=== PATIENT | female | born 2000 | race Hispanic/Latino ===

== ENCOUNTER 2020-01-23 11:28 | Emergency (ER) | payer OTHER, MEDICAID, SELFPAY ==
[2020-01-23 11:39] VITALS: BP 144/73; PULSE 88; RESP 16; TEMP 37; O2SAT 98; BMI 23.8
--- NOTE | 2020-01-23 11:46 | ED.FEMALEGU ---
HPI - Female Genitourinary <ANDREW Stanford - Last Filed: 01/23/20 15:01> General Chief complaint: Urogenital-Female Stated complaint: bladder pain Time Seen by Provider: 01/23/20 11:30 Source: patient Mode of arrival: Wheelchair Limitations: no limitations History of Present Illness HPI Narrative: The patient is a 19-year-old female nonsmoker who presents with her fiance with chief complaint of bladder pain that started at 10:30 a.m.. She states that her pain is focused in the right lower quadrant right side of her abdomen. It started when she woke up in urinated, then she had severe bladder spasm she could not get off the toilet. She tried to take a warm shower to see if that would help and it did not help. She complains of nausea, no vomiting. No fevers. She states she feels like she needs to keep urinating even when she is done. She denies any dysuria but complains of bladder spasm after urination. She denies any flank pain. She states she does have a history of endometriosis, but never has had the diagnosis confirmed by surgery. She denies any history of abdominal surgeries. She denies any vaginal bleeding vaginal discharge or vaginal itching. She denies any concern of sexually transmitted infections. She has never felt this way before. The patient states she has never been sexually active. She recently saw an OBGYN within the past week to talk about IUD insertion. The patient was tested for gonorrhea and chlamydia pre IUD insertion per protocol. She states she is negative. Related Data Previous Rx's Medication Instructions Recorded ketorolac 10 mg PO TID PRN #14 tab 01/23/20 nitrofurantoin macrocrystal 100 mg PO BID #14 cap 01/23/20 ondansetron 4 mg PO Q6H PRN #20 tab 01/23/20 Allergies Allergy/AdvReac Type Severity Reaction Status Date / Time No Known Drug Allergies Allergy Verified 01/23/20 11:38 Review of Systems <ANDREW Stanford - Last Filed: 01/23/20 15:01> Review of Systems Narrative: GENERAL: Denies chills, fatigue, malaise, fever, sweats. HEENT: Denies sinus pain, ear pain, sore throat, difficulty swallowing, dizziness. RESPIRATORY: Denies dyspnea, cough, wheezing, hemoptysis, sputum. CARDIOVASCULAR: Denies chest pain, palpitations, orthopnea, edema, GASTROINTESTINAL: See HPI : See HPI MUSCULOSKELETAL: denies weakness, joint pain, or bony pain SKIN: Denies rash, skin lesions, or other NEUROLOGIC: Denies weakness, headache, numbness, change in speech, confusion, seizures, incoordination. PSYCHIATRIC: No concerning psychosocial issues. 12 point review of systems is negative except for those stated above Patient History <ANDREW Stanford - Last Filed: 01/23/20 15:01> alcohol intake frequency: 0-2 drinks per day Substance Use Type: does not use Exam <ANDREW Stanford - Last Filed: 01/23/20 15:01> Narrative Exam Narrative: GENERAL: This is a well-nourished, well-developed patient, appears uncomfortable HEAD: Atraumatic. Normocephalic. No temporal or scalp tenderness. EYES: Pupils equal round and reactive. Extraocular motions intact. No scleral icterus. No injection or drainage. ENT: Nose without bleeding, purulent drainage or septal hematoma. Throat without erythema, tonsillar hypertrophy or exudate. Uvula midline. Airway patent. NECK: Trachea midline. No JVD or lymphadenopathy. Supple, nontender, no meningeal signs. CARDIOVASCULAR: Regular rate and rhythm RESPIRATORY: Clear to auscultation. Breath sounds equal bilaterally. No wheezes, rales, or rhonchi. No cough. No increased respiratory effort. No accessory muscle use. GASTROINTESTINAL: Abdomen soft, diffusely tender, nondistended. No hepato-splenomegaly, or palpable masses. No guarding. Negative Bashir sign. Right lower quadrant tenderness to palpation with no guarding. Negative peritoneal signs. EXTREMITIES: No clubbing, cyanosis, or edema. No joint tenderness, effusion, or edema noted. BACK: Nontender without deformity or crepitance. No flank tenderness. NEURO: AOx3. SKIN: No rash or erythema on visible skin Initial Vital Signs Initial Vital Signs: Vital Signs Temperature 98.6 F 01/23/20 11:39 Pulse Rate 88 01/23/20 11:39 Respiratory Rate 16 01/23/20 11:39 Blood Pressure 144/73 H 01/23/20 11:39 Pulse Oximetry 98 01/23/20 11:39 <John Boston DO - Last Filed: 01/23/20 15:02> Initial Vital Signs Initial Vital Signs: Vital Signs Temperature 98.6 F 01/23/20 11:39 Pulse Rate 88 01/23/20 11:39 Respiratory Rate 16 01/23/20 11:39 Blood Pressure 144/73 H 01/23/20 11:39 Pulse Oximetry 98 01/23/20 11:39 Course <ANDREW Stanford - Last Filed: 01/23/20 15:01> Orders Ordered: ED Orders 01/23/20 11:45 Amylase Stat Complete Blood Count AUTO DIFF Stat Comprehensive Metabolic Panel Stat Lipase Stat Test Serum,Qual Stat 01/23/20 12:25 Urinalysis and Microscopic Stat Urine Culture Stat 01/23/20 12:40 US pelvic complete Stat Discontinued Medications Sodium Chloride (Normal Saline 0.9%) 1,000 mls @ 1,000 mls/hr IV BOLUS ONE Stop: 01/23/20 12:41 Last Infusion: 01/23/20 14:17 Dose: 0 mls/hr Documented by: Admin: 01/23/20 11:53 Dose: 1,000 mls/hr Documented by: YAMILKA Ketorolac Tromethamine (Toradol) 30 mg IV NOW ONE Stop: 01/23/20 12:41 Last Admin: 01/23/20 12:52 Dose: 30 mg Documented by: IFEOMA Ondansetron HCl (Zofran) 4 mg IV NOW ONE Stop: 01/23/20 11:43 Last Admin: 01/23/20 11:53 Dose: 4 mg Documented by: YAMILKA Vital Signs Vital signs: Vital Signs - 8 hr 01/23/20 11:39 01/23/20 13:40 01/23/20 14:56 Temperature 98.6 F Pulse Rate 88 71 68 Respiratory Rate 16 16 Blood Pressure 144/73 H 105/61 Blood Pressure [Right Arm] 107/62 Pulse Oximetry 98 100 100 <John Botson DO - Last Filed: 01/23/20 15:02> Orders Ordered: ED Orders 01/23/20 11:45 Amylase Stat Complete Blood Count AUTO DIFF Stat Comprehensive Metabolic Panel Stat Lipase Stat Test Serum,Qual Stat 01/23/20 12:25 Urinalysis and Microscopic Stat Urine Culture Stat 01/23/20 12:40 US pelvic complete Stat Discontinued Medications Sodium Chloride (Normal Saline 0.9%) 1,000 mls @ 1,000 mls/hr IV BOLUS ONE Stop: 01/23/20 12:41 Last Infusion: 01/23/20 14:17 Dose: 0 mls/hr Documented by: Admin: 01/23/20 11:53 Dose: 1,000 mls/hr Documented by: YAMILKA Ketorolac Tromethamine (Toradol) 30 mg IV NOW ONE Stop: 01/23/20 12:41 Last Admin: 01/23/20 12:52 Dose: 30 mg Documented by: IFEOMA Ondansetron HCl (Zofran) 4 mg IV NOW ONE Stop: 01/23/20 11:43 Last Admin: 01/23/20 11:53 Dose: 4 mg Documented by: YAMILKA Vital Signs Vital signs: Vital Signs - 8 hr 01/23/20 11:39 01/23/20 13:40 01/23/20 14:56 Temperature 98.6 F Pulse Rate 88 71 68 Respiratory Rate 16 16 Blood Pressure 144/73 H 105/61 Blood Pressure [Right Arm] 107/62 Pulse Oximetry 98 100 100 [facility] - Female Genitourinary <ZACH Stanford - Last Filed: 01/23/20 15:01> Differential Diagnosis Differential diagnosis: Likely urinary tract infection, ovarian cyst and ruptured ovarian cyst Lab Data Result diagrams: 01/23/20 11:45 01/23/20 11:45 Labs: Lab Results 01/23/20 01/23/20 01/23/20 Range/Units 11:45 11:45 11:45 WBC 5.8 (4.5-11.0) X10^3/uL RBC 4.42 (4.0-5.2) X10^6/uL Hgb 14.4 (12.0-16.0) g/dL Hct 39.7 (36-46) % MCV 89.8 (80-100) fL MCH 32.5 (26-34) PG MCHC 36.2 H (30-36) % RDW 12.9 (11.6-14.8) % Plt Count 187 (150-400) X10^3/uL Neut % (Auto) 55.5 (50-75) % Lymph % (Auto) 34.3 (25-40) % Tate % (Auto) 8.9 (3-14) % Eos % (Auto) 1.1 L (2-4) % Baso % (Auto) 0.2 (0-2) % Neut # (Auto) 3200 (8539-5111) /uL Lymph # (Auto) 2000 (8901-2371) /uL Tate # (Auto) 500 (0-900) /uL Eos # (Auto) 100 (0-450) /uL Baso # (Auto) 0 (0-100) /uL Sodium 137 (137-145) mmol/L Potassium 4.2 (3.4-5.1) mmol/L Chloride 107 (98-107) mmol/L Carbon Dioxide 23 (22-32) mmol/L BUN 12 (7-17) mg/dL Creatinine 0.76 (0.52-1.04) mg/dL Estimated GFR > 60.0 (>60) mL/min BUN/Creatinine Ratio 15.8 (6-22) Glucose 84 (70-100) mg/dL Calcium 9.6 (8.4-10.2) mg/dL Total Bilirubin 0.6 (0.2-1.3) mg/dL AST 24 (14-36) IU/L ALT 14 (<35) IU/L Alkaline Phosphatase 47 (38-126) U/L Total Protein 7.1 (6.3-8.2) g/dL Albumin 4.2 (3.5-5.0) g/dL Globulin 2.9 (1.7-4.1) g/dL Albumin/Globulin Ratio 1.4 (1.0-2.8) Amylase 106 (30-110) U/L Lipase 89 (23-300) U/L Serum , Qual Negative (Negative) Urine Color Urine Appearance Urine pH (4.5-8.0) Ur Specific [place] (1.000-1.035) Urine Protein (Negative) Urine Glucose (UA) (Negative) g/dL Urine Ketones (NEGATIVE) Urine Occult Blood (Negative) Urine Nitrate (Negative) Urine Bilirubin (NEGATIVE) Urine Urobilinogen (0.2) E.U./dL Ur Leukocyte Esterase (NEGATIVE) Urine RBC (0-5/HPF) Urine WBC (0-5/HPF) Ur Squamous Epith Cells (0-5/HPF) Urine Bacteria (None) Ur Culture Indicated? 01/23/20 Range/Units 12:25 WBC (4.5-11.0) X10^3/uL RBC (4.0-5.2) X10^6/uL Hgb (12.0-16.0) g/dL Hct (36-46) % MCV (80-100) fL MCH (26-34) PG MCHC (30-36) % RDW (11.6-14.8) % Plt Count (150-400) X10^3/uL Neut % (Auto) (50-75) % Lymph % (Auto) (25-40) % Tate % (Auto) (3-14) % Eos % (Auto) (2-4) % Baso % (Auto) (0-2) % Neut # (Auto) (4468-2383) /uL Lymph # (Auto) (6340-6633) /uL Tate # (Auto) (0-900) /uL Eos # (Auto) (0-450) /uL Baso # (Auto) (0-100) /uL Sodium (137-145) mmol/L Potassium (3.4-5.1) mmol/L Chloride (98-107) mmol/L Carbon Dioxide (22-32) mmol/L BUN (7-17) mg/dL Creatinine (0.52-1.04) mg/dL Estimated GFR (>60) mL/min BUN/Creatinine Ratio (6-22) Glucose (70-100) mg/dL Calcium (8.4-10.2) mg/dL Total Bilirubin (0.2-1.3) mg/dL AST (14-36) IU/L ALT (<35) IU/L Alkaline Phosphatase (38-126) U/L Total Protein (6.3-8.2) g/dL Albumin (3.5-5.0) g/dL Globulin (1.7-4.1) g/dL Albumin/Globulin Ratio (1.0-2.8) Amylase (30-110) U/L Lipase (23-300) U/L Serum , Qual (Negative) Urine Color Yellow Urine Appearance Clear Urine pH 6.0 (4.5-8.0) Ur Specific [place] <=1.005 (1.000-1.035) Urine Protein Negative (Negative) Urine Glucose (UA) Negative (Negative) g/dL Urine Ketones Negative (NEGATIVE) Urine Occult Blood Trace-intact (Negative) Urine Nitrate Negative (Negative) Urine Bilirubin Negative (NEGATIVE) Urine Urobilinogen 0.2 (0.2) E.U./dL Ur Leukocyte Esterase Negative (NEGATIVE) Urine RBC 0-1/hpf (0-5/HPF) Urine WBC 0-1/hpf (0-5/HPF) Ur Squamous Epith Cells 1-5 /hpf (0-5/HPF) Urine Bacteria Moderate (10-30) H (None) Ur Culture Indicated? Specimen cultured Urine Dip Bedside Urine Glucose Negative Bedside Urine Bilirubin - Negative Bedside Urine Ketone - Negative Urine Specific [place] 1.010 Bedside Urine Occult Blood - Negative Bedside Urine pH 6.0 Bedside Urine Protein - Negative Bedside Urine Urobilinogen - Negative Bedside Urine Nitrite - Negative Bedside Urine Leukocytes - Negative Esterase Imaging Data US - BIKE MECHANIC: Radiologist's Impression: [address] [place] [id number] Ultrasound Report Signed Patient: Shana Bunch MMR#: [id number] : 2000Acct:[id number] Age/Sex: FDate of Service: 01/23/20 Loc: ED Accession Number: [id number] Procedure: US pelvic complete Ordering Provider: Vani Calderón INTERFACE DESIGNER-BC PROCEDURE: US PELVIC COMPLETE INDICATIONS: PAIN TECHNIQUE: Real-time scanning was performed of the pelvic organs, with image documentation. Additional endovaginal scanning was necessary due to incomplete visualization of the adnexal and endometrial structures by transabdominal scanning. COMPARISON: None. FINDINGS: Transabdominal scanning: Limited scanning through the kidneys shows no hydronephrosis. There is a proximally 60 cc of free fluid deep within the posterior cul-de-sac, containing low-level internal echoes, likely reflecting rupture of a hemorrhagic ovarian cyst Endovaginal scanning: Uterus: Uterus is normal in size at 4.4 x 5.3 x 7.1 cm, retroverted. The endometrium measures 4.9 mm in combined thickness. Ovaries: The right ovary measures 1.6 x 1.7 x 3.0 cm and the left measures 1.5 x 1.8 x 4.2 cm with a involuting cyst measuring 1.1 x 0.9 x 3.3 cm. IMPRESSION: Involuting presumably ruptured ovarian cyst left ovary, with the finding of nearby free fluid deep within the cul-de-sac containing low level internal echoes. The appearance likely is secondary to rupture of an ovarian cyst that is hemorrhagic. Please correlate for presence or absence of (the low-level echoes within the free fluid could indicate hemorrhage from ectopic ). Close clinical followup is recommended given this finding. Dictated by: Cuauhtemoc Akins M.D. on 01/23/2020 at 13:20 Approved by: Cuauhtemoc Akins M.D. on 01/23/2020 at 13:23 MDM Narrative Medical decision making narrative: The patient is a 19-year-old female who presents with a chief complaint of bladder spasms and lower abdominal pain. Urinalysis is concerning for infection with moderate bacteria, will treat for UTI with Macrobid at this point time. Ultrasound is suspicious for left ovarian cyst that is hemorrhagic at this point. Radiologist suggests possibility of ectopic and a positive patient, however this patient has a negative test by serum and has never been sexually active. She feels much improved after the above-stated therapies, so I sent prescriptions of Macrobid, Toradol, Zofran. Encouraged follow-up with primary care provider as well as the OBGYN that she saw within the past week. Patient has no leukocytosis on her labs, which is very reassuring. She is afebrile at as well. Patient has no questions or concerns upon discharge and states understanding of return precautions of any acute concerns, significant pain, significant back pain inability keep down fluids as well as follow-up care. She has been hemodynamically stable and afebrile throughout her stay in the emergency department. <John Boston, DO - Last Filed: 01/23/20 15:02> Lab Data Labs: Lab Results 01/23/20 01/23/20 01/23/20 Range/Units 11:45 11:45 11:45 WBC 5.8 (4.5-11.0) X10^3/uL RBC 4.42 (4.0-5.2) X10^6/uL Hgb 14.4 (12.0-16.0) g/dL Hct 39.7 (36-46) % MCV 89.8 (80-100) fL MCH 32.5 (26-34) PG MCHC 36.2 H (30-36) % RDW 12.9 (11.6-14.8) % Plt Count 187 (150-400) X10^3/uL Neut % (Auto) 55.5 (50-75) % Lymph % (Auto) 34.3 (25-40) % Tate % (Auto) 8.9 (3-14) % Eos % (Auto) 1.1 L (2-4) % Baso % (Auto) 0.2 (0-2) % Neut # (Auto) 3200 (9079-1834) /uL Lymph # (Auto) 2000 (4231-1260) /uL Tate # (Auto) 500 (0-900) /uL Eos # (Auto) 100 (0-450) /uL Baso # (Auto) 0 (0-100) /uL Sodium 137 (137-145) mmol/L Potassium 4.2 (3.4-5.1) mmol/L Chloride 107 (98-107) mmol/L Carbon Dioxide 23 (22-32) mmol/L BUN 12 (7-17) mg/dL Creatinine 0.76 (0.52-1.04) mg/dL Estimated GFR > 60.0 (>60) mL/min BUN/Creatinine Ratio 15.8 (6-22) Glucose 84 (70-100) mg/dL Calcium 9.6 (8.4-10.2) mg/dL Total Bilirubin 0.6 (0.2-1.3) mg/dL AST 24 (14-36) IU/L ALT 14 (<35) IU/L Alkaline Phosphatase 47 (38-126) U/L Total Protein 7.1 (6.3-8.2) g/dL Albumin 4.2 (3.5-5.0) g/dL Globulin 2.9 (1.7-4.1) g/dL Albumin/Globulin Ratio 1.4 (1.0-2.8) Amylase 106 (30-110) U/L Lipase 89 (23-300) U/L Serum , Qual Negative (Negative) Urine Color Urine Appearance Urine pH (4.5-8.0) Ur Specific [place] (1.000-1.035) Urine Protein (Negative) Urine Glucose (UA) (Negative) g/dL Urine Ketones (NEGATIVE) Urine Occult Blood (Negative) Urine Nitrate (Negative) Urine Bilirubin (NEGATIVE) Urine Urobilinogen (0.2) E.U./dL Ur Leukocyte Esterase (NEGATIVE) Urine RBC (0-5/HPF) Urine WBC (0-5/HPF) Ur Squamous Epith Cells (0-5/HPF) Urine Bacteria (None) Ur Culture Indicated? 01/23/20 Range/Units 12:25 WBC (4.5-11.0) X10^3/uL RBC (4.0-5.2) X10^6/uL Hgb (12.0-16.0) g/dL Hct (36-46) % MCV (80-100) fL MCH (26-34) PG MCHC (30-36) % RDW (11.6-14.8) % Plt Count (150-400) X10^3/uL Neut % (Auto) (50-75) % Lymph % (Auto) (25-40) % Tate % (Auto) (3-14) % Eos % (Auto) (2-4) % Baso % (Auto) (0-2) % Neut # (Auto) (7062-2708) /uL Lymph # (Auto) (9057-0852) /uL Tate # (Auto) (0-900) /uL Eos # (Auto) (0-450) /uL Baso # (Auto) (0-100) /uL Sodium (137-145) mmol/L Potassium (3.4-5.1) mmol/L Chloride (98-107) mmol/L Carbon Dioxide (22-32) mmol/L BUN (7-17) mg/dL Creatinine (0.52-1.04) mg/dL Estimated GFR (>60) mL/min BUN/Creatinine Ratio (6-22) Glucose (70-100) mg/dL Calcium (8.4-10.2) mg/dL Total Bilirubin (0.2-1.3) mg/dL AST (14-36) IU/L ALT (<35) IU/L Alkaline Phosphatase (38-126) U/L Total Protein (6.3-8.2) g/dL Albumin (3.5-5.0) g/dL Globulin (1.7-4.1) g/dL Albumin/Globulin Ratio (1.0-2.8) Amylase (30-110) U/L Lipase (23-300) U/L Serum , Qual (Negative) Urine Color Yellow Urine Appearance Clear Urine pH 6.0 (4.5-8.0) Ur Specific [place] <=1.005 (1.000-1.035) Urine Protein Negative (Negative) Urine Glucose (UA) Negative (Negative) g/dL Urine Ketones Negative (NEGATIVE) Urine Occult Blood Trace-intact (Negative) Urine Nitrate Negative (Negative) Urine Bilirubin Negative (NEGATIVE) Urine Urobilinogen 0.2 (0.2) E.U./dL Ur Leukocyte Esterase Negative (NEGATIVE) Urine RBC 0-1/hpf (0-5/HPF) Urine WBC 0-1/hpf (0-5/HPF) Ur Squamous Epith Cells 1-5 /hpf (0-5/HPF) Urine Bacteria Moderate (10-30) H (None) Ur Culture Indicated? Specimen cultured Urine Dip Bedside Urine Glucose Negative Bedside Urine Bilirubin - Negative Bedside Urine Ketone - Negative Urine Specific [place] 1.010 Bedside Urine Occult Blood - Negative Bedside Urine pH 6.0 Bedside Urine Protein - Negative Bedside Urine Urobilinogen - Negative Bedside Urine Nitrite - Negative Bedside Urine Leukocytes - Negative Esterase Discharge Plan Departure Patient Disposition: Home Clinical Impression: Urinary tract infection Qualifiers: Urinary tract infection type: site unspecified Hematuria presence: without hematuria Qualified Code(s): N39.0 - Urinary tract infection, site not specified Ovarian cyst Qualifiers: Laterality: left Qualified Code(s): N83.202 - Unspecified ovarian cyst, left side Discharge Date/Time: 01/23/20 14:57 Instructions: DI for Urinary Tract Infection (UTI), DI for Ovarian Cyst, DI for Abdominal Pain-Adult Activity Restrictions/Additional Instructions: Thank you for trusting us with your care today As I discussed, we found evidence of a urinary tract infection as well as an ovarian cyst I sent 3 prescriptions to [facility] in [place]. This includes an antibiotic, pain medicine and nausea medicine I have given you a prescription of Toradol. This is an NSAID. Do not combine it with other NSAIDs such as Aleve or ibuprofen. I suggest taking it with some food, as it can irritate your stomach. Please take a probiotic or yogurt with the antibiotic. I also suggest [id number] azo to help numb the urinary tract There is a urine culture pending. If we need to change your antibiotics in a few days we will call you. Please follow-up with primary care provider as well as fulfillment specialist Please come back to the emergency department for any acute concerns such as inability keep down fluids, severe pain etcetera. Severe back pain and high fevers as well as inability keep down fluids can indicate a worsening urinary tract infection to a kidney infection. Please be sure to be re-evaluated if you feel worse. Prescriptions: New nitrofurantoin macrocrystal 100 mg capsule 100 mg PO BID Qty: 14 RF: 0 ketorolac 10 mg tablet 10 mg PO TID PRN (Reason: pain) Qty: 14 RF: 0 ondansetron 4 mg tablet,disintegrating 4 mg PO Q6H PRN (Reason: nausea and vomiting) Qty: 20 RF: 0 <John Boston, DO - Last Filed: 01/23/20 15:02> [facility] Dr Boston Co-Sign Statement: I was available for consultation during this patient's emergency department visit. This chart is signed by myself for administrative purposes only. I did not have direct contact with this patient during this visit. They were seen independently by the APC.
[2020-01-23] MEDS: ONDANSETRON 4 MG/2 ML INJ IV (11:53)
[2020-01-23] MEDS: SODIUM CHLORIDE 0.9% 1,000 ML 1000 ML IV (11:53)
[2020-01-23 11:54] LABS: Add Manual Diff / Slide Review NO; Basophils Absolute Auto 0 /uL (0-100); Basophils Percent Auto 0.2 % (0-2); Eosinophils Absolute Auto 100 /uL (0-450); Eosinophils Percent Auto 1.1 % (2-4); Hematocrit 39.7 % (36-46); Hemoglobin 14.4 g/dL (12.0-16.0); Lymphocytes Absolute Auto 2000 /uL (1100-4500); Lymphocytes Percent Auto 34.3 % (25-40); Mean Corpuscular HGB Conc 36.2 % (30-36); Mean Corpuscular Hemoglobin 32.5 PG (26-34); Mean Corpuscular Volume 89.8 fL (80-100); Monocytes Absolute Auto 500 /uL (0-900); Monocytes Percent Auto 8.9 % (3-14); Neutrophils Absolute Auto 3200 /uL (1500-7000); Neutrophils Percent Auto 55.5 % (50-75); Platelet Count 187 X10^3/uL (150-400); Red Blood Cell Count 4.42 X10^6/uL (4.0-5.2); Red Cell Distribution Width 12.9 % (11.6-14.8); White Blood Cell Count 5.8 X10^3/uL (4.5-11.0)
[2020-01-23 12:05] LABS: Pregnancy Test Serum,Qual Negative (Negative)
[2020-01-23 12:06] LABS: Alanine Aminotransferase 14 IU/L (<35); Albumin 4.2 g/dL (3.5-5.0); Albumin Globulin Ratio 1.4 (1.0-2.8); Alkaline Phosphatase 47 U/L (38-126); Amylase 106 U/L (30-110); Aspartate Aminotransferase 24 IU/L (14-36); BUN Creatinine Ratio 15.8 (6-22); Bilirubin Total 0.6 mg/dL (0.2-1.3); Blood Urea Nitrogen 12 mg/dL (7-17); Calcium 9.6 mg/dL (8.4-10.2); Carbon Dioxide 23 mmol/L (22-32); Chloride 107 mmol/L (98-107); Estimated Glomerular Filt Rate > 60.0 mL/min (>60); Globulin 2.9 g/dL (1.7-4.1); Glucose 84 mg/dL (70-100); HEMOLYSIS < 15 (0-50); Lipase 89 U/L (23-300); Potassium 4.2 mmol/L (3.4-5.1); Sodium 137 mmol/L (137-145); Total Protein 7.1 g/dL (6.3-8.2)
[2020-01-23 12:36] LABS: Appearance Urine UA CLEAR; Bilirubin Urine UA NEGATIVE (NEGATIVE); Color Urine UA YELLOW; Glucose Urine UA NEGATIVE (Negative); Ketones Urine UA NEGATIVE (NEGATIVE); Leukocyte Esterase Urine UA NEGATIVE (NEGATIVE); Nitrite Urine UA NEGATIVE (Negative); Occult Blood Urine UA TRACE-INTACT (Negative); Protein Urine UA NEGATIVE (Negative); Specific Gravity Urine UA <=1.005 (1.000-1.035); Urobilinogen Urine UA 0.2 E.U./dL (0.2)
--- NOTE | 2020-01-23 12:40 | DI.US.S_ITS ---
PROCEDURE: US PELVIC COMPLETE INDICATIONS: PAIN TECHNIQUE: Real-time scanning was performed of the pelvic organs, with image documentation. Additional endovaginal scanning was necessary due to incomplete visualization of the adnexal and endometrial structures by transabdominal scanning. COMPARISON: None. FINDINGS: Transabdominal scanning: Limited scanning through the kidneys shows no hydronephrosis. There is a proximally 60 cc of free fluid deep within the posterior cul-de-sac, containing low-level internal echoes, likely reflecting rupture of a hemorrhagic ovarian cyst Endovaginal scanning: Uterus: Uterus is normal in size at 4.4 x 5.3 x 7.1 cm, retroverted. The endometrium measures 4.9 mm in combined thickness. Ovaries: The right ovary measures 1.6 x 1.7 x 3.0 cm and the left measures 1.5 x 1.8 x 4.2 cm with a involuting cyst measuring 1.1 x 0.9 x 3.3 cm. IMPRESSION: Involuting presumably ruptured ovarian cyst left ovary, with the finding of nearby free fluid deep within the cul-de-sac containing low level internal echoes. The appearance likely is secondary to rupture of an ovarian cyst that is hemorrhagic. Please correlate for presence or absence of (the low-level echoes within the free fluid could indicate hemorrhage from ectopic ). Close clinical followup is recommended given this finding. Dictated by: Cuauhtemoc Akins M.D. on 01/23/2020 at 13:20 Approved by: Cuauhtemoc Akins M.D. on 01/23/2020 at 13:23
[2020-01-23 12:44] LABS: Bacteria Urine Moderate (10-30); Culture Indicated Urine Specimen Cultured; RBC Urine 0-1/HPF (0-5/HPF); Squamous Epithelial Cell Urine 1-5 /HPF (0-5/HPF); WBC Urine 0-1/HPF (0-5/HPF)
[2020-01-23] MEDS: KETOROLAC 60 MG/2 ML VIAL 30 MG IV (12:52)
[2020-01-23 13:40] VITALS: BP 107/62; PULSE 71; RESP 16; O2SAT 100
[2020-01-23 14:56] VITALS: BP 105/61; PULSE 68; O2SAT 100
== END 2020-01-23 14:57 | disposition home or self-care (01) ==
PROVIDERS: Emergency Provider Nurse Practitioner Family
DX: N39.0 Urinary tract infection, site not specified (principal); N83.202 Unspecified ovarian cyst, left side; R10.31 Right lower quadrant pain
CPT/HCPCS: 36415; 76830; 76856; 80053; 81001; 81003; 82150; 83690; 84703; 85025; 87077; 87086; 96361; 96374; 96375; 99284; J1885; J2405